=== PATIENT | female | born 1955 | race Caucasian/White ===

== ENCOUNTER 2018-06-10 09:57 | Day surgery (SDC) | payer OTHER, SELFPAY ==
[2018-06-10] VITALS (7 sets, daily range): BP systolic 98–118; BP diastolic 62–75; PULSE 69–85; RESP 12–20; TEMP 36.2–36.5; O2SAT 95–99; BMI 21.6
[2018-06-10] MEDS: SODIUM CHLORIDE 0.9% 1,000 ML 42 ML IV (10:50)
[2018-06-10] MEDS: MIDAZOLAM 5 MG/5 ML VIAL IV (12:16)
[2018-06-10] MEDS: fentaNYL 250 MCG/5 ML INJ IV (12:17)
--- NOTE | 2018-06-10 12:30 | PM.PREOP ---
Pre-operative Note Interval Note Pre-op Check: Yes History & Physical Reviewed by Physician Changes: No ASA Class (for procedural sedation): I
--- NOTE | 2018-06-10 12:31 | PM.OP.ENDO ---
Operative Date/Time/Diagnoses Date of procedure: 06/10/18 Time of procedure: 12:31 Pre-op diagnosis: See indication and findings Procedure & Clinicians Study performed: Colonoscopy Same procedure as scheduled: Yes Indications: Screening Surgeon: Dixon Avila Procedure Notes Procedure in detail: After informed consent was obtained the patient was placed in the left lateral decubitus position. The video colonoscope was introduced in the rectum slowly advanced to the cecum. A slow withdrawal mucosa was carefully examined. The scope was removed patient tolerated the procedure well. Preparation was good. Blood loss none Complications none Sedation Versed 8 mg, fentanyl 100 mcg IV titration Total sedation time 22 min Findings Scattered diverticulosis particularly in the sigmoid colon Otherwise normal colonoscopy to cecum Patient will need follow-up colonoscopy in 10 years. She should stay on the MiraLax to help with laxation.
--- NOTE | 2018-06-10 12:44 | SUR.PHASEI ---
stable pacu stay
--- NOTE | 2018-06-10 13:10 | SUR.PHASEII ---
brought in, d/c instructions discussed, dr melgar saw pt at bedside- pt dressed when ready and left in stable condition.
== END 2018-06-10 13:11 ==
PROVIDERS: PCP Internal Medicine; Visit Provider Internal Medicine Gastroenterology
PROC: 0DJD8ZZ Inspection of Lower Intestinal Tract, Via Natural or Artificial Opening Endoscopic (ICD-10-PCS; CPT 45378; principal; 2018-06-10 11:30)
DX: K59.00 Constipation, unspecified (principal); R19.7 Diarrhea, unspecified; R19.4 Change in bowel habit; K57.30 Diverticulosis of large intestine without perforation or abscess without bleeding; F17.210 Nicotine dependence, cigarettes, uncomplicated
CPT/HCPCS: 45378; J2250; J3010

== ENCOUNTER → 2022-03-19 10:58 | Outpatient (CLI) | payer OTHER, SELFPAY ==
--- NOTE | 2022-03-19 | DI.NM.S_ITS ---
PROCEDURE: NM JOSE PERF SPECT REST & STR Rest and exercise myocardial perfusion SPECT with gated imaging and ejection fraction RADIOPHARMACEUTICAL: 11.7 mCi Tc-99m sestamibi IV at rest and 26.1 mCi Tc-99m sestamibi IV at peak exercise. A one day-protocol was performed. INDICATIONS: Chest pain, unspecified TECHNIQUE: Radiopharmaceutical was injected at peak stress test, and also at rest. SPECT images were obtained. SPECT myocardial perfusion images were displayed in short axis, horizontal long axis, and vertical long axis views. Gated images were reviewed using [employer] software. COMPARISON: None. CARDIAC STRESS: A standard Fernando treadmill exercise tolerance test was performed by the patient under the supervision of an attending staff. The patient exercised for 6 minutes and 31 seconds; functional aerobic impairment (JAYDEN) is -2%. Hemodynamic data: There is normal blood pressure and heart rate response to exercise stress. Patient achieved 91% of maximum predicted heart rate at peak exercise. Symptoms: Patient had chest pressure after exercise while laying during recovery. EKG: Sinus rhythm with significant ST changes at rest. There were exercise induced mild horizontal ST depressions in the inferior and anterolateral leads; no ectopy. FINDINGS: Raw data: There is good myocardial labeling by radiotracer. No significant motion artifacts. Nepo-[id number]-iftwg ratio is 0.36 (normal is less than 0.38 for sestamibi tracer, and less than 0.50 for thallium tracer). Left ventricle function: Gated images demonstrate normal left ventricle wall thickening. No segmental wall motion abnormality. No transient ischemic dilation; TID is 0.83 (normal less than 1.3). The left ventricle resting end-diastolic volume is 95 mL. Left ventricle stress ejection fraction is 78%; normal values are above 45%. Myocardial perfusion: There is normal distribution of activity in the left and right ventricular myocardium. No fixed or reversible perfusion defects. IMPRESSION: Low risk, probably normal treadmill nuclear stress test 1) No perfusion evidence of ischemia or infarction. 2) Normal left ventricular size, wall motion, and systolic function (EF post stress 78%). 3) Exercise induced mild horizontal ST depressions in the inferior and anterolateral leads. These changes are non-diagnostic in the setting of normal perfusion images. 4) Non-diagnostic chest pain during recovery while laying flat. Correlate clinically. 5) Average exercise tolerance (7.0 METs, JAYDEN -2%). Target heart rate reached. Appropriate BP response to exercise. 6) No prior nuclear stress test available for comparison. Dictated by: Héctor Tolentino MD on 03/20/2022 at 13:03 Approved by: Héctor Tolentino MD on 03/20/2022 at 13:07
[2022-03-19 14:39] LABS: COVID19 -Nasal RAPID Negative (Negative)
== END ==
PROVIDERS: PCP Physician Assistant Medical; Referring Provider Physician Assistant Medical; Visit Provider Physician Assistant Medical
DX: R07.9 Chest pain, unspecified (principal); Z20.822 Contact with and (suspected) exposure to COVID-19
CPT/HCPCS: 78452; 87635; 93017; A9502